=== PATIENT | male | born 1960 | race Caucasian/White ===

== ENCOUNTER 2018-01-07 22:11 | Emergency (ER) | payer SELFPAY ==
[2018-01-07] MEDS ORDERED: METHYLPREDNISOLONE INJ 125 MG/2 ML SDV ONE (22:20)
[2018-01-07] MEDS ORDERED: IPRATROPIUM/ALBUTEROL 0.5-2.5 MG/3 ML AMPUL NEB ONE ×2 (22:20→22:31)
[2018-01-07] MEDS ORDERED: ALBUTEROL SULFATE 0.083% NEB 2.5 MG/3 ML AMPUL NEB ONE (22:20)
[2018-01-07] MEDS ORDERED: METHYLPREDNISOLONE INJ 125 MG/2 ML SDV IV ONE (22:31)
[2018-01-07] MEDS: ALBUTEROL SULFATE 0.083% NEB 2.5 MG/3 ML AMPUL NEB SCH ×3 (22:34→23:44)
--- NOTE | 2018-01-07 22:41 | ER Document Report ---
ED Respiratory Problem <EDWARDO SOUSA V - Last Filed: 01/08/18 01:02> - General Mode of Arrival: Ambulatory Information source: Patient TRAVEL OUTSIDE OF THE [place] IN LAST 30 DAYS: No - HPI Patient complains to provider of: Asthma, Short of breath Onset: Other - Yesterday Duration: Worse/persistent Quality of pain: No pain Severity: None Pain Level: Denies Context: Hx asthma, Other - Coronary artery disease. denies: Smoker Short of Breath: Moderate Chest pain/discomfort: Tightness Cough: Nonproductive Sputum amount: None Associated symptoms: Cough, Short of breath, Wheezing, Other - Chest tight, abdomen distended feels bloated Similar symptoms previously: Yes Recently seen / treated by doctor: Yes - States he does not have a primary doctor has been visiting ERs that he has <CHANDRIKA MEYER - Last Filed: 01/08/18 02:49> - General Chief Complaint: Asthma Exacerbation Stated Complaint: BREATHING DIFFICULTY Time Seen by Provider: 01/07/18 22:31 Notes: 57-year-old male presents to ED for shortness of breath wheezing and abdominal distention. Patient states he has felt an asthma attack coming on for yesterday and today and is been using his inhaler more than normal. When he walked into the emergency room his sats were 94 after nursing home through 1 treatment his sats were up to 96 pulse was slower respiration is much less labored. He states he just got off recently a prednisone treatment. He states when he realized that his albuterol inhaler was not taking care of his shortness of breath and he decided to come to the emergency room. He states he does not have a primary doctor right now he is just been using the emergency room's. 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 Patient denies any pain in his chest or abdomen but feels that his abdomen is bloated. He does have a cardiac history of coronary artery disease by stents to heart cath and asthma. (CHANDRIKA MEYER) - Related Data Allergies/Adverse Reactions: No Known Drug Allergies Allergy (Verified 01/07/18 22:16) Past Medical History - General Information source: Patient - Social History Smoking Status: Never Smoker Cigarette use (# per day): No Chew tobacco use (# tins/day): No Smoking Education Provided: No Frequency of alcohol use: Social - 2-3 times a week Drug Abuse: None Occupation: [employer] Lives with: Family Family History: CAD, CVA, Hyperlipidemia, Hypertension. denies: COPD, DM, Malignancy, Thyroid Disfunction Patient has suicidal ideation: No Patient has homicidal ideation: No - Past Medical History Cardiac Medical History: Reports: Hx Coronary Artery Disease, Hx Hypercholesterolemia, Hx Hypertension Denies: Hx Congestive Heart Failure Pulmonary Medical History: Reports: Hx Asthma, Hx COPD - HE has been diagnosed with COPD but they change the diagnosis to asthma EENT Medical History: Reports: Eyes - The left eye multiple eye surgeries Neurological Medical History: Reports: None Endocrine Medical History: Reports: None Renal/ Medical History: Reports: None Malignancy Medical History: Reports None GI Medical History: Reports: Other - Hernia Musculoskeltal Medical History: Reports None Skin Medical History: Reports None Psychiatric Medical History: Reports: None Traumatic Medical History: Reports: None Infectious Medical History: Reports: None Past Surgical History: Reports: Hx Cardiac Catheterization - 2, Hx Coronary Stent - 5, Other - 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 ABSENT: chills, fever(s), headache(s), weight gain, weight loss] Eyes: [ABSENT: visual disturbances] Ears: [ABSENT: hearing changes] Cardiovascular: [ABSENT: chest pain, dyspnea on exertion, edema, orthropnea, palpitations] Respiratory: Cough shortness of breath wheezing states he is having a severe asthma attack. Has a history of coronary artery disease with 5 stents and 2 heart caths Gastrointestinal: [ABSENT: abdominal pain, constipation, diarrhea, hematemesis, hematochezia, nausea, vomiting] denies any abdominal pain but states he does have severe bloating states he has ventral hernia that the doctor has been watching. States he has not been to a doctor recently because his doctor moved and is not gotten another doctor yet. Genitourinary: [ABSENT: dysuria, hematuria] Musculoskeletal: [ABSENT: joint swelling] Integumentary: [ABSENT: rash, wounds] Neurological: [ABSENT: abnormal gait, abnormal speech, confusion, dizziness, focal weakness, syncope] Psychiatric: [ABSENT: anxiety, depression, homicidal ideation, suicidal ideation ] Endocrine: [ABSENT: cold intolerance, heat intolerance, menstrual abnormalities , polydipsia, polyuria] Hematologic/Lymphatic: [ABSENT: easy bleeding, easy bruising, lymphadenopathy] ( CHANDRIKA MEYER) - Vital signs Vitals: Temp Pulse Resp BP Pulse Ox 97.8 F 98 24 H 159/87 H 95 01/07/18 22:15 01/07/18 22:15 01/07/18 22:15 01/07/18 22:15 01/07/18 22:15 Course - Laboratory Result Diagrams: 01/07/18 22:38 01/07/18 22:38 <EDWARDO SOUSA V - Last Filed: 01/08/18 01:02> - Laboratory Result Diagrams: 01/07/18 22:38 01/07/18 22:38 - Diagnostic Test Radiology reviewed: Image reviewed, Reports reviewed <CHANDRIKA MEYER - Last Filed: 01/08/18 02:49> - Re-evaluation Re-evalutation: 01/07/18 23:51 57-year-old gentleman with past medical history of asthma who presented today for evaluation of shortness of breath. According to patient he has not been compliant with his medications. Patient does have prior history of intubation. Patient presented with tachypnea as well as wheezing bilaterally. Patient has been treated with IV steroids, one DuoNeb, 2 more albuterol treatments. Reviewed vital signs and nursing note as charted by RN. CONSTITUTIONAL: Alert magnesium HEAD: Normocephalic; atraumatic EYES: PERRL ENT: normal nose NECK: Supple without meningismus CARD: Regular rate and rhythm; no murmurs, no clicks, no rubs, no gallops; symmetric distal pulses RESP: Mild tachypnea with mild respiratory distress, bilateral wheezing in all of the lung longo, ABD/GI: Normal bowel sounds; slightly distended, soft, patient has umbilical hernia without any tenderness BACK: The back appears normal and is non-tender to palpation EXT: Normal ROM in all joints; non-tender to palpation; no cyanosis, no effusions, no edema SKIN: Normal color for age and race; warm; dry; good turgor; capillary refill < 2 seconds; no acute lesions noted NEURO: . No focal neurological deficits PSYCH: The patient's mood and manner are appropriate. Grooming and personal hygiene are appropriate. Upon reassessment at 11:50 PM Patient still has mild wheezing with increased work of breathing No hypoxia We will treat patient with IV magnesium as well as another albuterol Continuous cardiac monitoring as well as pulse oximetry Reassess patient 01/08/18 01:02 Reassessment 1 AM patient is doing much better after magnesium as well as another albuterol treatment Patient has no hypoxia or respiratory distress We will discharge patient with albuterol inhaler as well as prescription for steroids and Qvar Patient was given strict precautions to come back if his symptoms are getting worse (EDWARDO SOUSA V) 01/07/18 22:44 Patient started on breathing treatments of albuterol and DuoNeb. Patient was given Solu-Medrol 125 mg IV, cardiac labs and x-ray of abdomen and chest ordered. After first breathing treatment patient states he is feeling much better. Will monitor to ensure patient is stabilized. 01/07/18 23:41 Patient still short of breath after to the 1 DuoNeb, 2 albuterol, and Solu- Medrol. We will now treat with magnesium sulfate 2 g IV and 2 more albuterol treatments. Will continue to monitor O2 sats now up to monitor. 01/08/18 02:46 This was treated with 2 more abuterol nebs and magnesium sulfate 2 gms IV. Patient was much more stable no further short of breath O2 sats were 96-98/no hypoxia and states she is feeling very much better. He states she is no longer wheezing or short of breath. Patient was discharged home with prescription for Qvar and prednisone decreasing dose. He was given an albuterol and however in the emergency room for discharge. He was given strict instructions to return to the emergency room promptly for any shortness of breath or wheezing. He was also instructed to please get a primary doctor in his local area and get on preventative treatment to prevent him needing to continue coming to the emergency room for acute treatment. Instructions given concerning the frequent use of oral steroids. Patient stated he had been intubated in the past for asthma instructions given concerning ways to decrease the risk of this in the future. Patient verbalized understanding. He states he just does not have insurance and works out of town a lot. He states he does not have time for doctors. I explained to him he does not have time not to go to the doctor's. ( CHANDRIKA MEYER) - Vital Signs Vital signs: Temp Pulse Resp BP Pulse Ox 98.2 F 98 20 145/86 H 97 01/08/18 01:01 01/07/18 22:15 01/08/18 01:01 01/08/18 01:01 01/08/18 01:01 - Laboratory Laboratory results interpreted by me: 01/07/18 01/07/18 22:38 22:38 RBC 4.06 L Hgb 13.2 L RDW 17.1 H Chloride 108 H Glucose 112 H Critical Care Note <EDWARDO SOUSA V - Last Filed: 01/08/18 01:02> <CHANDRIKA MEYER - Last Filed: 01/08/18 02:49> - Critical Care Note Comments: Critical Care Time: 35 minutes Critical care provider statement: Respiratory distress, patient requiring multiple rounds of bronchodilators Critical care time was exclusive of: Separately billable procedures and treating other patients and teaching time Critical care was time spent personally by me on the following activities: Blood draw for specimens, development of treatment plan with patient or surrogate, evaluation of patient's response to treatment, examination of patient , obtaining history from patient or surrogate, ordering and performing treatments and interventions, ordering and review of laboratory studies, ordering and review of radiographic studies, pulse oximetry, re-evaluation of patient's condition and review of old charts I assumed direction of critical care for this patient from another provider in my specialty: no (EDWARDO SOUSA V) Discharge <EDWARDO SOUSA V - Last Filed: 01/08/18 01:02> <CHANDRIKA MEYER - Last Filed: 01/08/18 02:49> - Discharge Disposition: HOME, SELF-CARE Additional Instructions: ASTHMA: You have been diagnosed as having asthma. This is a condition where there is episodic tightness in the bronchial tubes. Allergies, infections, and polluted or cold air may be contributing factors. Emergency treatment of a severe asthma attack may include adrenaline shots , or bronchodilator aerosol. You may feel lightheaded, have a decreased exercise tolerance and a rapid pulse for an hour or two. Rest and get plenty of fluids. Home treatment of asthma requires bronchodilator drugs. These can be administered by injection, inhalation, or by mouth. Antibiotics and corticosteroids may be required for some patients. You should avoid chemical fumes, dusts, pollens, and exercising in very cold or dry air. If you smoke, stop!! If you develop a fever, increased wheezing, chest pain, or severe shortness of breath, you should contact the doctor immediately. STEROID MEDICATION: You have been given an injection of or oral medicine of the cortisone/ steroid class. This medication is used to control inflammation or allergy. Dutch t is usually only given for a short period of time, until the acute process subsides. There are usually no side effects from short-term use of cortisone-like medications. Some persons feel an increased sense of well-being and are not sleepy at bedtime. Long-term use of cortisone medications is best avoided, unless required for a severe condition. If your condition does not remit, or relapses after the course of corticosteroid medication, you should consult your physician. INHALED BRONCHODILATORS: You have received treatment(s) of and/or prescription for an inhaled bronchodilator -- a medication which stimulates the airways in the lung to dilate. This improves the flow of air in asthma, bronchitis, and emphysema. These medicines have some similarity to adrenaline, and can cause similar side effects: shakiness, racing heart, and a sense of nervousness. These side effects decrease with time. Contact your doctor if these side effects are severe. Do not over-use the medicine. Too-frequent use of the inhaler may make it ineffective. Call your doctor if the inhaler is not controlling your symptoms at the prescribed doses. USE OF ACETAMINOPHEN (Tylenol): Acetaminophen may be taken for pain relief or fever control. It's much safer than aspirin, offering a wider range of "safe" dosages. It is safe during . Some brand names are Tylenol, Panadol, Datril, Anacin 3, Tempra, and Liquiprin. Acetaminophen can be repeated every four hours. The following are maximum recommended dosages: WEIGHT Dose Drops Elixir Chewable( 80mg) (LBS.) drprs=droppers tsp=teaspoon 6 40 mg 0.4 ml (1/2) 6-11 80 mg 0.8 ml (full) tsp 1 tab 12-16 120 mg 1 1/2 drprs 3/4 tsp 1 1/2 tabs 17-23 160 mg 2 drprs 1 tsp 2 tabs 24-30 240 mg 3 drprs 1 1/2 tsp 3 tabs 30-35 320 mg 2 tsp 4 tabs 36-41 360 mg 2 1/4 tsp 4 1/2 tabs 42-47 400 mg 2 1/2 tsp 5 tabs 48-53 480 mg 3 tsp 6 tabs 54-59 520 mg 3 1/4 tsp 6 1/2 tabs 60-64 560 mg 3 1/2 tsp 7 tabs 65-70 600 mg 3 3/4 tsp 7 1/2 tabs 71-76 640 mg 4 tsp 8 tabs 77-82 720 mg 4 1/2 tsp 9 tabs 83-88 800 mg 5 tsp 10 tabs >89 pounds or adults 650 mg to 900 mg Acetaminophen can be repeated every four hours. Maximum dose not to exceed 4000 mg a day. These maximum recommended dosages are slightly higher than the dosages written on the product container, but these dosages are very safe and below the toxic dosage for acetaminophen. FOLLOW-UP CARE: If you have been referred to a physician for follow-up care, call the physician s office for an appointment as you were instructed or within the next two days. If you experience worsening or a significant change in your symptoms, notify the physician immediately or return to the Emergency Department at any time for re-evaluation. Prescriptions: Beclomethasone Dipropionate [Qvar] 8.7 gm IH BID #1 aer.[email or web address] Prednisone 10 mg PO ASDIR PRN #78 tablet PRN Reason: Forms: Elevated Blood Pressure
[2018-01-07 22:45] LABS: ABSOLUTE BASOPHILS # (AUTO) 0.1 10^3/uL (0.0-0.2); ABSOLUTE EOSINOPHILS # (AUTO) 0.3 10^3/uL (0.0-0.6); ABSOLUTE LYMPHOCYTES (AUTO) 2.7 10^3/uL (0.5-4.7); ABSOLUTE MONOCYTES (AUTO) 0.7 10^3/uL (0.1-1.4); ABSOLUTE NEUT (AUTO) 4.4 10^3/uL (1.7-8.2); BASOPHILS % (AUTO) 0.7 % (0-2); EOSINOPHILS % (AUTO) 3.1 % (0-6); HEMATOCRIT 38.5 % (37.9-51.0); HEMOGLOBIN 13.2 g/dL (13.5-17.0); LYMPHOCYTES % (AUTO) 33.1 % (13-45); MEAN CORPUSCULAR HEMOGLOBIN 32.5 pg (27.0-33.4); MEAN CORPUSCULAR HGB CONC 34.3 g/dL (32.0-36.0); MEAN CORPUSCULAR VOLUME 95 fl (80-97); MONOCYTES % (AUTO) 8.5 % (3-13); PLATELET COUNT 188 10^3/uL (150-450); RED BLOOD COUNT 4.06 10^6/uL (4.35-5.55); RED CELL DISTRIBUTION WIDTH 17.1 % (11.5-14.0); SEGMENTED NEUTROPHILS % (AUTO) 54.6 % (42-78); TOTAL CELLS COUNTED % (AUTO) 100 %; WHITE BLOOD COUNT 8.1 10^3/uL (4.0-10.5)
[2018-01-07 23:06] LABS: ALANINE AMINOTRANSFERASE 43 U/L (21-72); ALBUMIN 4.1 g/dL (3.5-5.0); ALKALINE PHOSPHATASE 62 U/L (38-126); ANION GAP 9 (5-19); ASPARTATE AMINO TRANSFERASE 38 U/L (17-59); BILIRUBIN,DIRECT 0.2 mg/dL (0.0-0.4); BILIRUBIN,TOTAL 0.7 mg/dL (0.2-1.3); BLOOD UREA NITROGEN 20 mg/dL (7-20); CALCIUM 9.3 mg/dL (8.4-10.2); CARBON DIOXIDE 22 mmol/L (22-30); CHLORIDE 108 mmol/L (98-107); CREATINE KINASE 80 U/L (55-170); GLUCOSE 112 mg/dL (75-110); LIPASE 220.3 U/L (23-300); POTASSIUM 4.3 mmol/L (3.6-5.0); SODIUM 139.4 mmol/L (137-145); TOTAL PROTEIN 6.4 g/dL (6.3-8.2)
--- NOTE | 2018-01-07 23:10 | RADIOLOGY REPORT (SQ) ---
EXAM DESCRIPTION: ABDOMEN 2 VIEWS COMPLETED DATE/TIME: 01/07/2018 10:58 pm REASON FOR STUDY: abdominal distension COMPARISON: None. NUMBER OF VIEWS: Two views. TECHNIQUE: Supine and erect/decubitus radiographic images of the abdomen acquired. LIMITATIONS: None. FINDINGS: FREE AIR: None. No abnormal gas collections. LUNG BASES: Clear. BOWEL GAS PATTERN: Nonobstructive pattern. No dilated loops or air fluid levels. CALCIFICATIONS: No suspicious calcifications. SOFT TISSUES: No gross mass or suggestion of organomegaly. HARDWARE: None in the abdomen. BONES: No acute fracture. No worrisome bone lesions. OTHER: No other significant finding. IMPRESSION: Nonobstructive pattern. TECHNICAL DOCUMENTATION: JOB ID: [id number] [place]-72 2010 [employer]- All Rights Reserved
--- NOTE | 2018-01-07 23:11 | RADIOLOGY REPORT (SQ) ---
EXAM DESCRIPTION: CHEST PA/LAT COMPLETED DATE/TIME: 01/07/2018 10:58 pm REASON FOR STUDY: short of breath COMPARISON: None. EXAM PARAMETERS: NUMBER OF VIEWS: two views TECHNIQUE: Digital Frontal and Lateral radiographic views of the chest acquired. RADIATION DOSE: NA LIMITATIONS: none FINDINGS: LUNGS AND PLEURA: No acute opacities, masses or pneumothorax. No pleural effusion. MEDIASTINUM AND HILAR STRUCTURES: Age-appropriate contour. HEART AND VASCULAR STRUCTURES: Heart normal size. No evidence for failure. BONES: No acute findings. HARDWARE: None in the chest. OTHER: No other significant finding. IMPRESSION: No acute findings. TECHNICAL DOCUMENTATION: JOB ID: [id number] [place]-72 2010 [employer]- All Rights Reserved
[2018-01-07 23:18] LABS: CREATINE KINASE MB 2.6 ng/mL (<4.55); TROPONIN I 0.016 ng/mL
[2018-01-07] MEDS ORDERED: NORMAL SALINE 1000 ML 1,000 ML IV ONE (23:35)
[2018-01-07] MEDS: MAGNESIUM SULFATE/D5W 1 GM/100 ML RTUPB IV SCH (23:44)
[2018-01-08] MEDS: MAGNESIUM SULFATE/D5W 1 GM/100 ML RTUPB IV SCH (00:03)
[2018-01-08] MEDS: ALBUTEROL SULFATE 0.083% NEB 2.5 MG/3 ML AMPUL NEB SCH ×2 (00:03→00:05)
[2018-01-08] MEDS ORDERED: ALBUTEROL SULFATE HFA (90 MCG/PUFF) 8 GM MDI (1 MDI/ER DISP) IH PRN (00:50)
[2018-01-08 01:07] VITALS: BP 145/86
--- NOTE | 2018-01-08 07:54 | EKG REPORT ---
SEVERITY:- NORMAL ECG - SINUS RHYTHM : Confirmed by: Brian Espinal MD 08-Jan-2018 07:53:31
== END 2018-01-08 01:14 | disposition home or self-care (01) ==
LOC: ER 22:11
DX: J45.909 Unspecified asthma, uncomplicated (principal); R14.0 Abdominal distension (gaseous); I25.10 Atherosclerotic heart disease of native coronary artery without angina pectoris; E78.00 Pure hypercholesterolemia, unspecified; I10 Essential (primary) hypertension
CPT/HCPCS: 93005; 94640; 99291; 96375; 96365; 36415; 82553; 82550; 83690; 85025; 80053; 84484; 74019; 71046; 93010; J2930; J3475 ×2; J7030; J3490; J7620